=== PATIENT | male | born 1985 | race Two or more races ===

== ENCOUNTER 2017-10-14 17:34 | Emergency (ER) | payer BC ==
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
== END 2017-10-14 18:17 | disposition home or self-care (01) ==
LOC: JD.ED 17:34
DX: T63.441A Toxic effect of venom of bees, accidental (unintentional), initial encounter (principal); Z79.899 Other long term (current) drug therapy
CPT/HCPCS: 99283